=== PATIENT | male | born 1965 | race Caucasian/White ===

== ENCOUNTER 2018-06-06 22:49 | Inpatient (IN) | payer MEDICAID ==
[~2018-06-06] VITALS: Ht 170.2 cm; Wt 66.7 kg
[2018-06-06 23:03] VITALS: BP 143/81
--- NOTE | 2018-06-06 23:03 | NUR ---
PATIENT PRESENTS TO ED WITH UNDER THE INFLUENCE OF [place] SUBSTANCE. AAO X2 TO NAME AND BIRTHDATE.DENIES N/V/D; SKIN IS PINK/WARM/DRY;LUNGS CLEAR BL; HR EVEN AND REGULAR; PT DENIES ANY FEVER, CP, SOB, OR COUGH AT THIS TIME; PATIENT STATES PAIN OF 0/10 AT THIS TIME; VSS; PATIENT POSITIONED FOR COMFORT; HOB ELEVATED; BEDRAILS UP X2; BED DOWN. ER MD MADE AWARE OF PT STATUS.
[2018-06-06] MEDS ORDERED: NACL 0.9% 1,000 ML IV ONE (23:10)
[2018-06-06 23:31] LABS: BASOPHILS # (AUTO) 0.1 K/uL (0.00-0.22); BASOPHILS % (AUTO) 2.1 % (0.0-2.0); EOSINOPHILS % (AUTO) 0.2 % (0.0-4.0); HEMATOCRIT 46.5 % (36-52); HEMOGLOBIN 15.9 g/dL (12.0-18.0); LYMPHOCYTES # (AUTO) 0.8 K/uL (2.0-11.5); LYMPHOCYTES % (AUTO) 24.9 % (20.5-51.1); MEAN CORPUSCULAR HEMOGLOBIN 32 pg (27-31); MEAN CORPUSCULAR HGB CONC 34 g/dL (33-37); MEAN CORPUSCULAR VOLUME 93.4 fL (80-94); MONOCYTES # (AUTO) 0.4 K/uL (0.8-1.0); MONOCYTES % (AUTO) 13.3 % (1.7-9.3); NEUTROPHILS # (AUTO) 1.8 K/uL (1.8-7.7); NEUTROPHILS % (AUTO) 59.5 % (42.2-75.2); PLATELET COUNT (AUTO) 128 K/uL (140-450); RED BLOOD CELL COUNT(AUTO) 4.98 MIL/uL (4.20-6.10); RED CELL DISTRIBUTION WIDTH 15.5 % (11.6-13.7); WHITE BLOOD COUNT (AUTO) 3.1 K/uL (4.8-10.8)
[2018-06-06 23:37] LABS: ANION GAP 21.7 (8-16); CARBON DIOXIDE 24.6 mmol/L (21-32); CHLORIDE 98 mmol/L (98-107); CREATININE 0.8 mg/dL (0.7-1.3); GFR ARICAN-AMERICAN 129 mL/min (>90); GLUCOSE 81 mg/dL (74-106); POTASSIUM 3.3 mmol/L (3.5-5.1); SODIUM SERUM 141 mmol/L (136-145); UREA NITROGEN, BLOOD 17 mg/dL (7-18)
[2018-06-06 23:45] LABS: ALBUMIN 3.9 g/dL (3.4-5.0); ASPARTATE AMINOTRANSFERASE 212 U/L (15-37); TOTAL BILIRUBIN 1.5 mg/dL (0.0-1.0)
[2018-06-06 23:46] LABS: SALICYLATE < 2.8 mg/dL (2.8-20.0)
[2018-06-06 23:49] LABS: ACETAMINOPHEN < 0.5 ug/ml (10-30)
[2018-06-07] MEDS ORDERED: DOCUSATE SODIUM 100 MG GELCAP PO PRN (00:20)
[2018-06-07] MEDS ORDERED: ACETAMINOPHEN 325 MG TAB PO PRN (00:20)
[2018-06-07] MEDS ORDERED: NACL 0.9% 1,000 ML IV SCH (00:20)
[2018-06-07] MEDS ORDERED: MORPHINE SULFATE 2 MG/ML SYR IVP PRN (00:20)
[2018-06-07 00:42] LABS: PROTHROMBIN TIME 10.1 secs (10.8-13.4)
--- NOTE | 2018-06-07 00:50 | NUR ---
Patient will be admitted to care of DR HUGHES. Admited to [facility]. Will go to room 124A. Belongings list completed. Report to ABIEL VALDES .
[2018-06-07 00:52] LABS: CHOL/HDL RATIO 2.3 (1-4.5); MAGNESIUM 2.1 mg/dL (1.8-2.4); PHOSPHORUS 4.1 mg/dL (2.5-4.9); THYROID STIMULATING HORMONE 0.58 uIU/mL (0.34-3.74)
--- NOTE | 2018-06-07 01:00 | NUR ---
RECEIVED REPORT FROM KATE STACKERAUDIO VISUAL SECRETARY NURSE FROM ER. PT BROUGHT UP BY MALISSA, AND PT WAS TRANSFERRED TO ROOM 124A. HE IS AOX2 AND INDONESIAN SPEAKING ONLY. PT REPORTS NO OTHER MEDICAL HX EXCEPT ETOH ABUSE AND SEIZURES. PT SAID THAT HE HAD BEEN DRINKING 3-4 LARGE 24OZ BEERS X 2 WEEKS. V/S FOLLOWS T 97.4 P 74 R 18 B/P 124/68 02 93% ON ROOM AIR.
--- NOTE | 2018-06-07 01:15 | NUR ---
DR. RAMON EVALUATING PT AT BEDSIDE. NEW ORDERED NOTED FOR N/S TO RUNN AT 100MLS/HR. IN PROGRESS. PT HAS R AC 20GUAGE, FLUSHED PATENET. AND RUNNING NS ORDERED. PT IN LOW BED WITH SIDE RAILS UP X2 HE IS ALERT TO NAME, AND HAS NO FURTHER C/O VOICED. CALL GARDINER IN REACH. PT ALSO HAS SEIZURE PRECAUTIONS IN PLACE.
[2018-06-07] MEDS ORDERED: MULTIVITAMIN-12 10 ML, THIAMINE 100 MG, MAGNESIUM SULFATE 50% 2,000 MG, FOLIC ACID 1 MG... IV SCH ×10 (02:00→07:02)
[2018-06-07] MEDS ORDERED: MULTIVITAMIN-12 10 ML VIAL IV ONE (02:15)
[2018-06-07] MEDS ORDERED: FOLIC ACID 5 MG/ML SYR ONE (02:18)
--- NOTE | 2018-06-07 02:31 | NUR ---
PT HAS ORDER FOR BANANA BAG.WE HAVE NO THIAMIN [facility]LE [facility].I CHECKED [facility] UNIT AND ICU AND ER.SO CALLED DR CORTES RESIDENT AND ASKED HIM DO YOU WANT TO MIX BANANA BAG WITHOUT THIAMIN OR DO YOU WANT TO WAIT UNTIL AM THAT PHARMACY MAKE IT.HE SAID WAIT UNTIL AM.INFORMED ABIEL VALDES PT'S NURSE. Addendum: 06/10/18 at 2033 by Ashutosh Young RN PLEASE AMEND PT HAS ORDER FOR....................................................................HE SAID WAIT UNTIL AM.
[2018-06-07 06:49] LABS: BASOPHILS # (AUTO) 0.1 K/uL (0.00-0.22); BASOPHILS % (AUTO) 2.3 % (0.0-2.0); EOSINOPHILS % (AUTO) 0.2 % (0.0-4.0); LYMPHOCYTES # (AUTO) 0.5 K/uL (2.0-11.5); LYMPHOCYTES % (AUTO) 14.9 % (20.5-51.1); MEAN CORPUSCULAR HEMOGLOBIN 32 pg (27-31); MEAN CORPUSCULAR HGB CONC 34 g/dL (33-37); MEAN CORPUSCULAR VOLUME 93.1 fL (80-94); MONOCYTES # (AUTO) 0.3 K/uL (0.8-1.0); MONOCYTES % (AUTO) 10.6 % (1.7-9.3); NEUTROPHILS # (AUTO) 2.2 K/uL (1.8-7.7); PLATELET COUNT (AUTO) 124 K/uL (140-450); RED BLOOD CELL COUNT(AUTO) 4.73 MIL/uL (4.20-6.10)
[2018-06-07 07:14] LABS: ANION GAP 23.8 (8-16); CARBON DIOXIDE 21.7 mmol/L (21-32); CREATININE 0.7 mg/dL (0.7-1.3); POTASSIUM 3.5 mmol/L (3.5-5.1)
[2018-06-07 07:16] LABS: PHOSPHORUS 4.2 mg/dL (2.5-4.9)
--- NOTE | 2018-06-07 07:25 | NUR ---
CARE ENDORSE TO RN DAYHSIFT NURSE AT BEDSIDE FOR CONTINUITY OF CARE, PT IN STABLE CONDITION.
--- NOTE | 2018-06-07 07:26 | NUR ---
RECEIVED BEDSIDE REPORT FROM BOTTOM MAN NURSE. PT IS AOX2, TO NAME AND PLACE. DENIES PAIN. ABLE TO MAKE NEED KNOWN AND FOLLOW SIMPLE COMMANDS. ABLE TO SELF-REPOSITIONING. RESPIRATION IS EVEN AND UNLABORED. RA. NO SIGNS OF DISTRESS NOTED. IV ON RAC 20G, PATENT AND ASYMPTOMATIC, INFUSING PER MD ORDER. SKIN INTACT AND DRY. UNABLE TO AMBULATE WITH STEADY GAIT. URANAL IS AT BEDSIDE. DISCUSSED PLAN OF CARE WITH PT, PT NODDED HIS HEAD. FALL PRECAUTIONS AND SEIZURE PRECAUTION INITIALED. BED IN LOW POSITION, CALL LIGHT WITHIN REACH.
[2018-06-07 07:58] LABS: BARBITURATE, URINE NEG. ng/ml (NEG <=200); BENZODIAZEPINE, URINE NEG. ng/mL (NEG <=200); CANNABINOID, URINE NEG. ng/mL (NEG <=50); COCAINE, URINE NEG. ng/mL (NEG <=300); OPIATE, URINE NEG. ng/mL (NEG <=2000); PHENCYCLIDINE SCREEN,URINE NEG. ng/mL (NEG <=25)
[2018-06-07 08:00] VITALS: BP 143/83
--- NOTE | 2018-06-07 08:07 | NUR ---
PATIENT HAS BEEN SCREENED AND CATEGORIZED MODERATE NUTRITION RISK. PATIENT WILL BE SEEN WITHIN 3-5 DAYS OF ADMISSION. 06/09/18[address]
[2018-06-07 08:19] LABS: APPEARANCE,URINE CLEAR (CLEAR); BILIRUBIN,URINE 1+ (NEGATIVE); BLOOD, URINE TRACE-L (NEGATIVE); COLOR,URINE ORANGE (YELLOW); LEUKOCYTE ESTERASE ,URINE NEGATIVE (NEGATIVE); NITRITE, URINE NEGATIVE (NEGATIVE); UGLUCOSE TRACE (NEGATIVE)
[2018-06-07 08:41] LABS: RBC,URINE 0-5 /HPF (0-5); WBC,URINE 0-5 /HPF (0-5)
[2018-06-07] MEDS: chlordiazePOXIDE 25 MG CAP PO SCH ×3 (10:54→17:40)
[2018-06-07] MEDS ORDERED: DEXT 5% /NACL 0.9% 1,000 ML IV SCH (12:00)
--- NOTE | 2018-06-07 12:15 | NUR ---
PT IS SITTING UP ON BED AND EATING LUNCH. NO SIGNS OF DISTRESS NOTED.
--- NOTE | 2018-06-07 13:01 | NUR ---
IS TALKING TO PT NOW.
[2018-06-07] MEDS: ONDANSETRON 4 MG/2 ML VIAL IM/IVP PRN (13:07)
--- NOTE | 2018-06-07 13:11 | NUR ---
PT C/O OF FEELING NAUSEA AND VOMITING. ADMINISTERED PRN ZOFRAN AND PROVIDED VOMITING BAG.
--- NOTE | 2018-06-07 14:06 | NUR ---
ASSISTED PLUMBER MAINTENANCE AND PROVIDED A SPONGE BAHT TO PATIENT. INSTRUCTED PT TO USE THE BEDSIDE URANAL AND PRESS THE CALL LIGHT FOR ANY ASSISTANCE. SAFETY MEASURES IN PLACE.
[2018-06-07] MEDS: LORazepam 2 MG/ML VIAL IVP PRN ×2 (14:33→21:28)
--- NOTE | 2018-06-07 14:35 | NUR ---
PT IS FEELING RESTLESS AND IRRITABLE. MINIMAL TREMOR NOTED ON BOTH HANDS. ADMINISTERED PRN ATIVAN PER MD ORDER.
[2018-06-07] MEDS: NACL 0.9% 1,000 ML IV SCH (15:04)
[2018-06-07 16:00] VITALS: BP 132/79
--- NOTE | 2018-06-07 16:19 | NUR ---
PT IS SLEEPING ON BED AT THIS TIME. NO SIGNS OF DISTRESS NOTED.
--- NOTE | 2018-06-07 18:18 | NUR ---
PT IS EATING DINNER. ABLE TO SELF-FEED. MINIMAL TREMOR NOTED. DENIES OF PAIN. NO SIGNS OF DISTRESS NOTED.
--- NOTE | 2018-06-07 19:25 | NUR ---
ENDORSED PATIENT AT BEDSIDE TO DIRECTOR INTERNAL CONTROL NURSE FOR CONTINUITY OF CARE. PT IS IN STABLE CONDITION.
--- NOTE | 2018-06-07 19:26 | NUR ---
RECEIVED BEDSIDE REPORT FROM AM SHIFT NURSE. PT IS AOX2, TO NAME AND PLACE.DX: ALCOHOL INTOXICATION. DENIES PAIN. ABLE TO MAKE NEED KNOWN AND FOLLOW SIMPLE COMMANDS. ABLE TO SELF-REPOSITIONING. RESPIRATION IS EVEN AND UNLABORED. ON RA. NO SIGNS OF DISTRESS NOTED. IV ON RAC 20G, PATENT AND ASYMPTOMATIC, INFUSING PER MD ORDER. SKIN INTACT AND DRY. UNABLE TO AMBULATE WITH STEADY GAIT. URINAL IS AT BEDSIDE. DISCUSSED PLAN OF CARE WITH PT. FALL PRECAUTIONS AND SEIZURE PRECAUTION INITIALED. BED IN LOW POSITION, CALL LIGHT WITHIN REACH.
[2018-06-07 20:13] VITALS: BP 141/84
--- NOTE | 2018-06-07 21:00 | NUR ---
SON WAS HERE ASKING FOR UPDATES MANAGER IMMUNOLOGY IN [place] NO. [id number] ARNOL AIDED UPDATE FROM THE NURSE
--- NOTE | 2018-06-07 21:28 | NUR ---
SEIZURES/TREMORS NOTED WHILE WITH BEDPAN IN THE BED. PT COULD NOT LIFT HIS PELVIS UP. UNCOORDINATED MVTS. GIVEN ATIVAN ORDERED PRN
[2018-06-08] MEDS: NACL 0.9% 1,000 ML IV SCH ×3 (00:40→20:40)
[2018-06-08 04:13] VITALS: BP 141/84
[2018-06-08] MEDS: LORazepam 2 MG/ML VIAL IVP PRN (05:44)
--- NOTE | 2018-06-08 05:53 | NUR ---
SEIZURES/TREMORS NOTED GIVEN ATIVANB ORDERED
--- NOTE | 2018-06-08 07:20 | NUR ---
ENDORSED PT TO AM SHIFT FOR CONTINUITY OF CARE.
--- NOTE | 2018-06-08 07:22 | NUR ---
RECEIVED BEDSIDE REPORT FROM RESEARCH INSTRUCTOR NURSE. PT IS AOX2, TO NAME AND PLACE. DENIES PAIN. ABLE TO MAKE NEED KNOWN AND FOLLOW SIMPLE COMMANDS. ABLE TO SELF-REPOSITIONING. RESPIRATION IS EVEN AND UNLABORED. RA. MINIMAL TREMOR NOTED WHILE PT IS MOVING HIS HANDS. NO SIGNS OF DISTRESS NOTED. IV ON RAC 20G, PATENT AND ASYMPTOMATIC, INFUSING PER MD ORDER. SKIN INTACT AND DRY. UNABLE TO AMBULATE; UNSTEADY GAIT. URANAL IS AT BEDSIDE. DISCUSSED PLAN OF CARE WITH PT. FALL PRECAUTIONS AND SEIZURE PRECAUTION INITIALED. BED IN LOW POSITION, CALL LIGHT WITHIN REACH.
[2018-06-08 07:44] LABS: BASOPHILS # (AUTO) 0.1 K/uL (0.00-0.22); EOSINOPHILS % (AUTO) 0.8 % (0.0-4.0); HEMOGLOBIN 13.3 g/dL (12.0-18.0); LYMPHOCYTES # (AUTO) 0.6 K/uL (2.0-11.5); LYMPHOCYTES % (AUTO) 11.1 % (20.5-51.1); MEAN CORPUSCULAR HEMOGLOBIN 32 pg (27-31); MEAN CORPUSCULAR HGB CONC 34 g/dL (33-37); MEAN CORPUSCULAR VOLUME 93.7 fL (80-94); MONOCYTES # (AUTO) 0.5 K/uL (0.8-1.0); MONOCYTES % (AUTO) 9.4 % (1.7-9.3); NEUTROPHILS # (AUTO) 4.2 K/uL (1.8-7.7); NEUTROPHILS % (AUTO) 77.7 % (42.2-75.2); PLATELET COUNT (AUTO) 104 K/uL (140-450); RED BLOOD CELL COUNT(AUTO) 4.16 MIL/uL (4.20-6.10); RED CELL DISTRIBUTION WIDTH 15.8 % (11.6-13.7); WHITE BLOOD COUNT (AUTO) 5.4 K/uL (4.8-10.8)
[2018-06-08 08:00] VITALS: BP 153/80
[2018-06-08 08:21] LABS: ANION GAP 17.7 (8-16); CARBON DIOXIDE 26.4 mmol/L (21-32); CREATININE 0.8 mg/dL (0.7-1.3); POTASSIUM 3.1 mmol/L (3.5-5.1)
[2018-06-08] MEDS: chlordiazePOXIDE 25 MG CAP PO SCH ×3 (09:18→17:33)
--- NOTE | 2018-06-08 09:19 | NUR ---
ADMINISTERED MED PER MD ORDER. PT HAS MINIMAL TREMOR WHILE HE IS MOVING HIS HANDS. DENIES PAIN. BROTHER BRONWYN IS AT BEDSIDE.
--- NOTE | 2018-06-08 11:20 | NUR ---
PT IS RESTING ON BED. REQUESTED FOR AN EXTRA BLANKET. PROVIDED. NO SIGNS OF DISTRESS NOTED. SAFETY MEASURES ARE IN PLACE.
[2018-06-08] MEDS ORDERED: POTASSIUM CHLORIDE 40 MEQ, LIDOCAINE MPF 1% - 5 mL VIAL 25 MG in NACL 0.9% 250 ML IV SCH (12:00)
--- NOTE | 2018-06-08 12:49 | NUR ---
ADMINISTERED POTASSIUM PER MD ORDER, PT'S POTASSIUM LEVEL IS 3.1 FROM AM LAB. PT IS SITTING UP AND EATING LUNCH ON BED. DENIES PAIN. NO SIGNS OF DISTRESS NOTED.
--- NOTE | 2018-06-08 15:02 | NUR ---
PT IS RESTING ON BED. NO SIGNS OF DISTRESS NOTED. SAFETY MEASURES IN PLACE.
[2018-06-08] MEDS: ATORVASTATIN 20 MG TAB PO SCH (17:32)
[2018-06-08] MEDS: ONDANSETRON 4 MG/2 ML VIAL IM/IVP PRN (17:39)
--- NOTE | 2018-06-08 17:41 | NUR ---
PT IS FEELING NAUSEA AND FEELING TO THROW UP. ADMINISTERED PRN ZOFRAN.
--- NOTE | 2018-06-08 18:20 | NUR ---
PT'S BROTHER IN [place] IS AT BEDSIDE. PT IS TALKING TO HIS BROTHER IN [place]. NO SIGNS OF DISTRESS NOTED.
--- NOTE | 2018-06-08 19:20 | NUR ---
ENDORSED PATIENT AT BEDSIDE TO EXERCISE EQUIPMENT REPAIR TECHNICIAN NURSE FOR CONTINUITY OF CARE. PT IS IN STABLE CONDITION.
--- NOTE | 2018-06-08 19:50 | NUR ---
RECEIVED BEDSIDE REPORT FROM DAY SHIFT NURSE FOR CONTINUITY OF CARE. PATIENT IS AWAKE, AOX2 TO NAME AND PLACE. RESPIRATION EVEN UNLABORED ON ROOM AIR. DENIES PAIN. SKIN IS WARM AND DRY. IV PATENT AND INTACT. PLAN OF CARE WAS DISCUSSED. FAMILY MEMBER AT BEDSIDE. ALL SAFETY MEASURES ARE IN PLACE. FALL RISK PROTOCOL IN PLACE. SIDE RAILS PADDED FOR SEIZURE PRECAUTION. URINAL LOCK WITHIN REACH. BED IS AT LOW POSITION. CALL LIGHT WITHIN REACH.
--- NOTE | 2018-06-08 20:40 | NUR ---
PATIENT AWAKE, ALERT, RESPIRATION EVEN UNLABORED ON ROOM AIR. COMPLAINED OF 6/10 ABDOMEN PAIN . PRN PAIN MED ADMINISTERED PER ORDER. WILL CONTINUE TO MONITOR.
[2018-06-08] MEDS: HYDROcodone/APAP 7.5/325 MG 1 TAB PO PRN (20:53)
--- NOTE | 2018-06-08 21:30 | NUR ---
RECHECKED PATIENT. PATIENT IS NO LONGER IN PAIN. WILL CONTINUE TO MONITOR.
--- NOTE | 2018-06-08 23:15 | NUR ---
PATIENT ATTEMPT TO GET UP. INSTRUCTED TO USE CALL LIGHT. PATIENT ABLE TO VERBALIZED UNDERSTANDING. BED ALARM ON. WILL CONTINUE TO MONITOR.
[2018-06-09] VITALS: BP 146/85
--- NOTE | 2018-06-09 00:20 | NUR ---
CHECKED PATIENT. VITALS WERE TAKEN. NO DISTRESS NOTED AT THIS TIME. WILL CONTINUE TO MONITOR.
--- NOTE | 2018-06-09 03:38 | NUR ---
CHECKED PATIENT. PATIENT SLEEPING NO DISTRESS NOTED. WILL CONTINUE TO MONITOR
--- NOTE | 2018-06-09 04:00 | NUR ---
PATIENT WAS CONFUSED TRY TO GET UP AND PULLED HIS IV. NO ACTIVE BLEEDING SEEN. IV CANNULA INTACT. INSERTED IV NEW TO THE LEFT FOREARM 24G. WILL CONTINUE TO MONITOR.
--- NOTE | 2018-06-09 06:26 | NUR ---
PATIENT SLEEPING COMFORTABLY RESPIRATION EVEN UNLABORED ON ROOM AIR. IV PATENT AND INTACT. WILL CONTINUE TO MONITOR.
[2018-06-09 07:33] LABS: BASOPHILS # (AUTO) 0.1 K/uL (0.00-0.22); BASOPHILS % (AUTO) 1.4 % (0.0-2.0); EOSINOPHILS # (AUTO) 0.1 K/uL (0-0.4); EOSINOPHILS % (AUTO) 2.5 % (0.0-4.0); HEMATOCRIT 40.9 % (36-52); HEMOGLOBIN 13.9 g/dL (12.0-18.0); LYMPHOCYTES # (AUTO) 0.7 K/uL (2.0-11.5); LYMPHOCYTES % (AUTO) 15.6 % (20.5-51.1); MEAN CORPUSCULAR HEMOGLOBIN 32 pg (27-31); MEAN CORPUSCULAR HGB CONC 34 g/dL (33-37); MEAN CORPUSCULAR VOLUME 93.5 fL (80-94); MONOCYTES # (AUTO) 0.5 K/uL (0.8-1.0); NEUTROPHILS # (AUTO) 3.2 K/uL (1.8-7.7); NEUTROPHILS % (AUTO) 70.5 % (42.2-75.2); PLATELET COUNT (AUTO) 101 K/uL (140-450); RED BLOOD CELL COUNT(AUTO) 4.37 MIL/uL (4.20-6.10); WHITE BLOOD COUNT (AUTO) 4.6 K/uL (4.8-10.8)
--- NOTE | 2018-06-09 07:42 | NUR ---
ENDORSED PATIENT TO DAY SHIFT NURSE. PATIENT STABLE AT THIS TIME.
--- NOTE | 2018-06-09 07:43 | NUR ---
RECEIVED REPORT FROM FLOATLIGHT LOADING SUPERVISOR RN AT BEDSIDE, PT IS AAOX4, CITIZEN OF [place] SPEAKING ONLY, ABLE TO FOLLOW COMMANDS, DENIES PAIN, VSS, NO S/S OF DISTRESS, CLEAR LUNG SOUNDS ETHAN, ON RA. DENIES CHEST PAIN, ROUND SOFT ABDOMEN WITH ACTIVE BOWEL SOUNDS, CONTINENT B&B'S, SLIGHT WEAKNESS TO BLE, SKIN IS INTACT, WARM AND DRY TO TOUCH, IV SITE TO LEFT FOREARM,22GA, RUNNING NS AT 100ML/HR. HOB ELEVATED TO 30 DEGREES, SAFETY MEASURES IN PLACE, CALL LIGHT WITHIN REACH, WILL CONTINUE TO MONITOR.
[2018-06-09 07:45] LABS: MAGNESIUM 1.8 mg/dL (1.8-2.4); PHOSPHORUS 2.5 mg/dL (2.5-4.9)
[2018-06-09 07:56] LABS: ANION GAP 12.7 (8-16); CARBON DIOXIDE 30.4 mmol/L (21-32); CREATININE 0.6 mg/dL (0.7-1.3); POTASSIUM 3.1 mmol/L (3.5-5.1)
[2018-06-09 08:00] VITALS: BP 132/99
[2018-06-09] MEDS: chlordiazePOXIDE 25 MG CAP PO SCH ×3 (08:37→16:25)
[2018-06-09] MEDS: NACL 0.9% 1,000 ML IV SCH ×2 (08:38→15:40)
--- NOTE | 2018-06-09 09:00 | NUR ---
SCHEDULED MEDICATION GIVEN, PT IS ABLE TO SWALLOW PILLS WHOLE, NO ADVERSE EFFECTS NOTED. PT'S SON BRONWYN AT BEDSIDE, PHONE NUMBER OBTAINED [phone], DR. CHRISTINE CAME IN, QUESTIONS HAS BEEN ANSWERED.
[2018-06-09] MEDS: MULTIVITAMIN-12 10 ML, THIAMINE 100 MG, MAGNESIUM SULFATE 50% 2,000 MG, FOLIC ACID 1 MG... IV SCH ×5 (10:31)
--- NOTE | 2018-06-09 12:00 | NUR ---
NO CHANGE OF CONDITION AT THIS TIME, PT IS IN BED, NO S/S OF DISTRESS, DENIES PAIN, ABLE TO EAT LUNCH SELF WITHOUT ASSIST.
[2018-06-09] MEDS ORDERED: POTASSIUM CHLORIDE 40 MEQ, LIDOCAINE MPF 1% - 5 mL VIAL 25 MG in NACL 0.9% 250 ML IV ONE (15:35)
[2018-06-09 16:00] VITALS: BP 129/82
--- NOTE | 2018-06-09 16:00 | NUR ---
PT IS RESTING IN BED, NO CHANGE OF CONDITION, FAMILY MEMBERS AT BEDSIDE.
[2018-06-09] MEDS: ATORVASTATIN 20 MG TAB PO SCH (16:25)
[2018-06-09] MEDS: INFLUENZA VIRUS VACCINE QUAD 0.5 ML SYR IMVAC PRN (17:55)
--- NOTE | 2018-06-09 19:16 | NUR ---
REPORT GIVEN TO DRAWING KILN SUPERVISOR NURSE AT BEDSIDE FOR CONTINUE OF CARE.
--- NOTE | 2018-06-09 19:30 | NUR ---
RECEIVED BEDSIDE REPORT FROM DAY SHIFT NURSE FOR CONTINUITY OF CARE. PATIENT AWAKE, ALERT, RESPIRATION EVEN UNLABORED ON ROOM AIR. DENIES PAIN. SKIN IS WARM AND DRY. IV PATENT AND INTACT. PLAN OF CARE WAS DISCUSSED. ALL SAFETY MEASURES ARE IN PLACE. BED IS AT LOW POSITION. BED ALARM ON. CALL LIGHT WITHIN REACH. WILL CONTINUE TO MONITOR.
--- NOTE | 2018-06-09 20:20 | NUR ---
PATIENT AWAKE RESPIRATION EVEN UNLABORED ON ROOM AIR. DENIES PAIN. INITIAL ASSESSMENT DONE. VITALS WERE TAKEN. CALL LIGHT WITHIN REACH. WILL CONTINUE TO MONITOR.
--- NOTE | 2018-06-09 22:50 | NUR ---
PATIENT WATCHING TV IN BED. RESPIRATION EVEN UNLABORED ON ROOM AIR. NO DISTRESS NOTED. CALL LIGHT WITHIN REACH. WILL CONTINUE TO MONITOR
[2018-06-10] VITALS: BP 135/87
--- NOTE | 2018-06-10 00:30 | NUR ---
VITALS WERE TAKEN. PATIENT CONDITION STABLE. CALL LIGHT WITHIN REACH. WILL CONTINUE TO MONITOR
[2018-06-10] MEDS: NACL 0.9% 1,000 ML IV SCH ×2 (02:40→11:10)
--- NOTE | 2018-06-10 02:43 | NUR ---
CHECKED PATIENT. PATIENT SLEEPING RESPIRATION EVEN UNLABORED ON ROOM AIR. NO DISTRESS NOTED. CALL LIGHT WITHIN REACH. WILL CONTINUE TO MONITOR
--- NOTE | 2018-06-10 03:30 | NUR ---
PATIENT ATTEMPT TO GET UP. INSTRUCT TO USE CALL LIGHT FOR HELP. ABLE TO VERBALIZE UNDERSTANDING. WILL CONTINUE TO MONITOR.
--- NOTE | 2018-06-10 05:30 | NUR ---
PATIENT CONFUSED PULLED HIS IV OUT. NO ACTIVE BLEEDING SEEN. CANNULA INTACT. INSERTED NEW IV TO LEFT FOREARM 24G. WILL CONTINUE TO MONITOR.
--- NOTE | 2018-06-10 07:22 | NUR ---
RECEIVED REPORT FROM ENVIRONMENTAL MAINTENANCE WORKER NURSE. PATIENT LYING DOWN IN BED SLEEPING, AROUSABLE BY VOICE. NO DISTRESS NOTED. DENIES ANY PAIN AT THIS TIME. RESPIRATIONS EVEN, UNLABORED, ON ROOM AIR. AAOX2, CALM, COOPERATIVE, SKIN COLOR APPROPRIATE TO ETHNICITY, WARM TO TOUCH. SKIN INTACT. IV SITE INTACT, PATENT, AND INFUSING IVF PER MD ORDERS. ABDOMEN SOFT, NON-DISTENDED. REVIEWED PLAN OF CARE WITH PATIENT. PATIENT VERBALIZED UNDERSTANDING. SAFETY MEASURES IN PLACE, CALL LIGHT WITHIN REACH. WILL CONTINUE TO MONITOR.
--- NOTE | 2018-06-10 07:25 | NUR ---
ENDORSED PATIENT TO DAY SHIFT NURSE FOR CONTINUITY OF CARE, PATIENT STABLE AT THIS TIME.
[2018-06-10 08:00] VITALS: BP 133/81
[2018-06-10 08:14] LABS: HEPATITIS A ANTIBODY IGM Negative (Negative); HEPATITIS B CORE AB TOTAL Negative (Negative); HEPATITIS B SURFACE ANTIBODY Non Reactive (.); HEPATITIS B SURFACE ANTIGEN Negative (Negative)
[2018-06-10] MEDS: chlordiazePOXIDE 25 MG CAP PO SCH ×2 (08:52→13:14)
[2018-06-10] MEDS: HYDROcodone/APAP 7.5/325 MG 1 TAB PO PRN (08:52)
[2018-06-10] MEDS: MULTIVITAMIN-12 10 ML, THIAMINE 100 MG, MAGNESIUM SULFATE 50% 2,000 MG, FOLIC ACID 1 MG... IV SCH ×5 (08:53)
--- NOTE | 2018-06-10 09:02 | NUR ---
PATIENT SITTING IN BED WITH COMPLAINTS OF PAIN, NORCO GIVEN. OTHER SCHEDULED MEDICATIONS DUE GIVEN. WILL CONTINUE TO MONITOR.
[2018-06-10] MEDS ORDERED: ATOR20TA40 PO (09:36)
[2018-06-10] MEDS ORDERED: LIB25 PO (09:36)
[2018-06-10] MEDS ORDERED: VIT1TAB10 PO (09:36)
[2018-06-10] MEDS ORDERED: ONDA4TAB PO (09:38)
[2018-06-10] MEDS ORDERED: POTASSIUM CHLORIDE 10 MEQ TABER PO SCH (09:40)
--- NOTE | 2018-06-10 11:09 | NUR ---
PATIENT LYING DOWN IN BED WATCHING TV. NO DISTRESS NOTED. DENIES ANY PAIN. SCHEDULED MEDICATIONS DUE GIVEN. WILL CONTINUE TO MONITOR.
[2018-06-10] MEDS: INFLUENZA VIRUS VACCINE QUAD 0.5 ML SYR IMVAC PRN (13:15)
--- NOTE | 2018-06-10 13:19 | NUR ---
PATIENT LYING DOWN IN BED. NO DISTRESS NOTED. DENIES ANY PAIN. WAS GOING TO GIVE FLU SHOT, HOWEVER, FLU SHOT ALREADY GIVEN ON 06/09/18. NO FLU SHOT GIVEN AT THIS TIME. WILL CONTINUE TO MONITOR.
--- NOTE | 2018-06-10 14:00 | NUR ---
DISCHARGE INSTRUCTIONS PROVIDED TO PATIENT IN PREFERRED LANGUAGE OF URDU USING RESET MERCHANDISER PHONE # [phone]. INSTRUCTIONS REGARDING NEW/CHANGED MEDICATION REGIMEN, FOLLOW-UP WITH CLINIC WITHIN 3-5 DAYS, DIET REGIMEN, AND ALCOHOL INTOXICATION MANAGEMENT/PREVENTION. ANSWERED ALL OF PATIENT'S QUESTIONS REGARDING DISCHARGE. PATIENT VERBALIZED COMPLETE UNDERSTANDING. PATIENT AWAITING FOR SON TO ARRIVE AFTER WORK AROUND 1600 TO TAKE HIM HOME. WILL CONTINUE TO MONITOR.
--- NOTE | 2018-06-10 16:35 | NUR ---
SON AT BEDSIDE READY TO TAKE PATIENT HOME. IV SITE REMOVED WITH MINIMAL BLOOD AND LUMEN COMPLETELY INTACT. ID BANDS REMOVED. PATIENT TO GET DRESSED AND THEN READY TO GO HOME. WILL CONTINUE TO MONITOR.
--- NOTE | 2018-06-10 17:00 | NUR ---
PATIENT'S SON AT BEDSIDE READY TO TAKE PATIENT HOME. ALL BELONGINGS WITH PATIENT. PATIENT ALL DRESSED. ESCORTED PATIENT DOWN TO LOBBY VIA WHEELCHAIR. PATIENT DISCHARGED TO HOME IN PRIVATE VEHICLE IN STABLE CONDITION AT THIS TIME.
== END 2018-06-10 17:00 | disposition home or self-care (01) | DRG 775 ==
LOC: EDBD 22:49 → MED 22:49 → MTU 06-07 00:22
PROVIDERS: ADMIT General Practice; ATTEND General Practice
DX: F10.129 Alcohol abuse with intoxication, unspecified (principal); G92 Toxic encephalopathy; K85.90 Acute pancreatitis without necrosis or infection, unspecified; E83.51 Hypocalcemia; E87.6 Hypokalemia; R79.89 Other specified abnormal findings of blood chemistry; D72.819 Decreased white blood cell count, unspecified; E78.5 Hyperlipidemia, unspecified; M19.012 Primary osteoarthritis, left shoulder; M19.011 Primary osteoarthritis, right shoulder; K76.9 Liver disease, unspecified; E78.00 Pure hypercholesterolemia, unspecified; K80.20 Calculus of gallbladder without cholecystitis without obstruction; Z71.41 Alcohol abuse counseling and surveillance of alcoholic; Y90.9 Presence of alcohol in blood, level not specified
CPT/HCPCS: 36415; 71045; 76705; 80048; 80053; 80305; 81001; 82140; 82150; 83036; 83690; 83735; 83880; 84100; 84443; 84484; 85025; 85610; 85730; 86704; 86706; 86708; 86709; 86803; 87081; 87340; 93005; 96360; 99285; A9153; G0480; G0482; J2001; J2060; J2405; J3411; J3475; J3480; J3490; J7030; J7042; Q0092